=== PATIENT | female | born 1975 | race Caucasian/White ===

== ENCOUNTER 2018-03-01 13:44 | Day surgery (SDC) | payer OTHER, MEDICAID, SELFPAY ==
[2018-02-23 14:10] VITALS: BMI 30.4
[2018-03-01] VITALS (11 sets, daily range): BP systolic 132–154; BP diastolic 87–106; PULSE 75–105; RESP 9–17; TEMP 36.2–37.3; O2SAT 95–100; BMI 30.4
--- NOTE | 2018-03-01 | DI.RAD.S_ITS ---
PROCEDURE: XR LUMBAR SPINE 2-3V INDICATIONS: L5-S1 REVISION DISCECTOMY TECHNIQUE: 2 views of the lumbar spine were acquired. COMPARISON: [facility] LINDA Gallardo, XR LUMBAR SPINE 2 OR 3 VIEWS, 01/05/2018, 13:29. FINDINGS: 2 spot fluoroscopic intraoperative images demonstrating surgical instruments in the posterior paraspinal soft tissues, the tip of which is seen at the L5-S1 level Dictated by: Regulo Melgar M.D. on 03/01/2018 at 18:00 Approved by: Regulo Melgar M.D. on 03/01/2018 at 18:01
[2018-03-01] MEDS: fentaNYL 100 MCG/2 ML INJ 50 MCG IV ×4 (14:35→14:50)
[2018-03-01] MEDS: LACTATED RINGERS 1,000 ML 42 ML IV (14:36)
--- NOTE | 2018-03-01 15:19 | SUR.PREOP ---
Patient resting, appears comfortable, lights dimmed, does not need any other assistance at this time. Spouse at bedside.
[2018-03-01] MEDS: fentaNYL 100 MCG/2 ML INJ IV (15:53)
--- NOTE | 2018-03-01 15:55 | SUR.PREOP ---
pt medicated with fentanyl for pain per dr dykes.
--- NOTE | 2018-03-01 16:05 | PM.PREOP ---
Pre-operative Note Interval Note Pre-op Check: Yes History & Physical Reviewed by Physician and Yes Exam Performed Changes: No
--- NOTE | 2018-03-01 16:16 | P.OP_ITS ---
Operative Date/Time/Diagnoses Date of procedure: 03/01/18 Time of procedure: 18:36 Pre-op diagnosis: Recurrent lumbar disc herniation L5-S1 Post-op diagnosis: same Procedure & Clinicians Procedure: Revision laminotomy and diskectomy on the left at L5-S1 Use of microscope Placement of epidural catheter Same procedure as scheduled: Yes Indications: [age] year old female with intractable pain from lumbar disc herniation. They had failed conservative management and requested operative intervention. Risks and benefits of surgery were discussed and appropriate consents were obtained. Surgeon: Erasmo Paredes Preventative Maintenance Technician: Mikala Sutton Anesthesia Type: General Operative Notes Findings: none Closure Type: primary Specimen(s): none sent Estimated Blood Loss (mL): 20 Procedure in detail: Patient was brought to the operating room and intubated on the table. A time-out was performed. There were rolled over the well-padded prone position on the Angel table. The back was prepped and draped in standard sterile fashion. Preoperative antibiotics were given. Using fluoroscopy, a 3 cm incision was made to the well-marked left of the midline at the L5-S1 level. We used Bovie to come down to and split the fascia. We then used the [employer] MaXcess dilators with fluoroscopy and then opened our retractors. The soft tissue was cleared off with Bovie, a marker was placed, an x-ray was taken to confirm positioning.We then brought in the microscope. A combination of high-speed bur and Kerrison were used to perform a revision left- sided hemilaminotomy and hemifacetectomy. There was some scar tissue from her previous laminotomy at this level but we were able eventually to work around it. The dura and traversing root were densely adhered to the disc itself. We had to do very careful dissection to finally get it to clear up and release off the disc. This was cleared with bipolar. A scalpel used to perform an annulotomy and a pituitary was used to perform the diskectomy. This came in very small fragments and the majority of the disc material actually had calcified into pieces. We were not able to remove a large chunk but instead removed in piecemeal of hard calcified pieces. Finally we had the majority of the disc tissue removed. The ball probe was swept underneath the dura along the disc to make sure there were no further loose fragments. This was also placed into the disc and moved around to make sure there were no further loose fragments. Once everything was adequately decompressed, the wound was copiously irrigated. An epidural catheter was filled with 100 mcg of fentanyl and 8 mL of 0.25% Marcaine. The dura was carefully depressed under the laminotomy site and the catheter was advanced 6 cm cephalad. Due to the significant amount of retraction we had used during the exposure to get to the disc, with also placed 40 mg of Depo-Medrol on top of the root. The retractor was removed and the fascia was closed. The epidural catheter was then injected without resistance and removed. Vancomycin powder was placed in the wound. Superficial and skin were closed. Sterile dressing was placed. The patient was then rolled over, transferred to the stretcher, and brought to recovery room without complications. Complications: none Condition: stable Disposition: PACU Plan for aftercare: Outpatient. Limited activity x2 weeks then begin physical therapy.
[2018-03-01] MEDS: CEFAZOLIN 2 GM/100 ML FROZ.PIGGY IV (16:45)
--- NOTE | 2018-03-01 17:07 | SUR.OPER ---
Prone on spine table, head in foam head support, padded chest and pelvic supports, gel pad at knees, lower legs supported by pillows; nipples, genitalia and toes free of pressure, arms secured on foam padded arm boards at <90 degrees abduction. Tape over blanket at thigh secured to table.
[2018-03-01] MEDS: VANCOMYCIN 1,000 MG VIAL 1000 MG TOP (17:11)
[2018-03-01] MEDS: BUPIVACAINE 0.25% (PF) 8 ML, fentaNYL 100 MCG INJ (17:11)
[2018-03-01] MEDS: SODIUM CHLORIDE 0.9% 1,000 ML, GENTAMICIN 80 MG IRR (17:13)
[2018-03-01] MEDS: THROMBIN (BOVINE) 5,000 UNIT VIAL 5000 UNIT TOP (17:15)
[2018-03-01] MEDS: methylPREDNISolone acet DEPO 40 MG/ML VIAL INJ (18:12)
[2018-03-01] MEDS: HYDROMORPHONE 2 MG INJ 0.5 MG IV ×5 (18:59→19:30)
[2018-03-01] MEDS: HYDROCODONE/ACET 5/325 TABLET 1 TAB PO ×2 (19:23→19:34)
[2018-03-01] MEDS: hydrOXYzine pamoate 25 MG CAPSULE 50 MG PO (19:47)
--- NOTE | 2018-03-01 20:40 | SUR.PHASEI ---
191 late entry Upon waking, patient noted that her pain was no longer radiating down the leg; c/o burning pain in back. 193 late entry Spouse to bedside. patient tolerating PO intake w/o nausea. talking appropriately to spouse, asking questions about what the surgeon reported. Continuing to medicate in order to improve pain level. patient becoming calm, BP and heart rate WNL, no longer grimacing, wiggling in bed. 1947 late entry Transferred to [facility] care. Patient rates pain at 4/10 and feels that she is ready to prepare for discharge.
--- NOTE | 2018-03-01 20:47 | SUR.PHASEII ---
2011 Discharge to home. Had a large amount of urine/incontinence. Skin care provided by patient, spouse, and RN . Patient assisted with dressing; noted that she was able to move her legs much better than pre-op. Voice pleasure in being able to sit in the wheelchair to ride to the car. States that she had not been able to sit since December. Pleasant, appreciative of care. Patient is a former [employer]. Stable, No c/o nausea, pain improved and tolerable.
== END 2018-03-01 20:12 | disposition home or self-care (01) ==
PROVIDERS: PCP Nurse Practitioner Family; Visit Provider Orthopaedic Surgery
PROC: (CPT 63042; principal; 2018-03-01 15:15)
DX: M51.16 Intervertebral disc disorders with radiculopathy, lumbar region (principal); Z98.890 Other specified postprocedural states; F17.210 Nicotine dependence, cigarettes, uncomplicated
CPT/HCPCS: 63042; 72100; 76000; J0330; J0690; J1030; J1100; J1170; J2405; J2704; J3010

== ENCOUNTER → 2020-12-27 11:06 | Outpatient (CLI) | payer OTHER, SELFPAY ==
--- NOTE | 2020-12-27 | DI.RAD.S_ITS ---
PROCEDURE: XR WRIST RT MIN 3V INDICATIONS: Pain in unspecified knee/Pain in unspecified wrist TECHNIQUE: 4 views of the wrist were acquired. COMPARISON: None. FINDINGS: Bones: No fractures or dislocations. No suspicious bony lesions. Scaphoid view: No fracture Soft tissues: No suspicious soft tissue calcifications. IMPRESSION: Normal right wrist and scaphoid bone. Dictated by: Ronaldo Lima M.D. on 12/27/2020 at 12:37 Approved by: Ronaldo Lima M.D. on 12/27/2020 at 12:46
--- NOTE | 2020-12-27 | DI.RAD.S_ITS ---
PROCEDURE: XR KNEE LT 3V INDICATIONS: Pain in unspecified knee/Pain in unspecified wrist TECHNIQUE: 3 views of the knee were acquired. COMPARISON: None. FINDINGS: Bones: No fractures or dislocations. No suspicious bony lesions. Soft tissues: No joint effusion. No suspicious soft tissue calcifications. IMPRESSION: No significant abnormality. Dictated by: Jovan Qureshi M.D. on 12/27/2020 at 12:02 Approved by: Jovan Qureshi M.D. on 12/27/2020 at 12:05
== END ==
PROVIDERS: PCP Nurse Practitioner Family
DX: M25.562 Pain in left knee (principal); M25.531 Pain in right wrist
CPT/HCPCS: 73110; 73562